=== PATIENT | female | born 1950 | race Caucasian/White ===

== ENCOUNTER 2017-06-05 14:48 | Emergency (ER) | payer BC, MEDICARE, OTHER ==
[~2017-06-05] VITALS: Ht 170.2 cm; Wt 72.6 kg
[2017-06-05 15:07] VITALS: BP 116/69
== END 2017-06-05 22:16 | disposition left against medical advice (07) ==
LOC: ER 14:48
DX: S00.81XA Abrasion of other part of head, initial encounter (principal); Z53.21 Procedure and treatment not carried out due to patient leaving prior to being seen by health care provider; W19.XXXA Unspecified fall, initial encounter; Y93.89 Activity, other specified; Y99.8 Other external cause status; Y92.89 Other specified places as the place of occurrence of the external cause
CPT/HCPCS: 93005